=== PATIENT | female | born 1940 | race Caucasian/White ===

== ENCOUNTER 2019-01-10 07:38 | Inpatient (IN) | payer MEDICARE, OTHER ==
[2019-01-10] MEDS ORDERED: ASPIRIN 81 MG TABLET, CHEWABLE PO ONE (08:07)
[2019-01-10] MEDS ORDERED: IPRATROPIUM/ALBUTEROL 0.5-2.5 MG/3 ML AMPUL NEB ONE (08:07)
[2019-01-10 08:41] LABS: VENOUS BLOOD BASE EXCESS -9.8 mmol/L; VENOUS BLOOD HCO3 19.4 mmol/L (20-32); VENOUS BLOOD PCO2 55.3 mmHg (35-63)
[2019-01-10 08:43] LABS: HEMATOCRIT 29.5 % (36.0-47.0); MEAN CORPUSCULAR HEMOGLOBIN 26.8 pg (27.0-33.4); MEAN CORPUSCULAR HGB CONC 30.3 g/dL (32.0-36.0); MEAN CORPUSCULAR VOLUME 88 fl (80-97); PLATELET COUNT 476 10^3/uL (150-450); RED BLOOD COUNT 3.34 10^6/uL (3.72-5.28); RED CELL DISTRIBUTION WIDTH 19.3 % (11.5-14.0); WHITE BLOOD COUNT 20.8 10^3/uL (4.0-10.5)
[2019-01-10 08:44] LABS: VENOUS BLOOD PH 7.16 (7.30-7.42)
--- NOTE | 2019-01-10 08:52 | RADIOLOGY REPORT (SQ) ---
EXAM DESCRIPTION: CHEST SINGLE VIEW COMPLETED DATE/TIME: 01/10/2019 8:38 am REASON FOR STUDY: SOB, COPD, hypoxia COMPARISON: None. EXAM PARAMETERS: NUMBER OF VIEWS: One view. TECHNIQUE: Single frontal radiographic view of the chest acquired. RADIATION DOSE: NA LIMITATIONS: None. FINDINGS: LUNGS AND PLEURA: There is mild, diffuse bilateral interstitial pulmonary opacity. MEDIASTINUM AND HILAR STRUCTURES: No masses. Contour normal. HEART AND VASCULAR STRUCTURES: Cardiomegaly. BONES: No acute findings. HARDWARE: None in the chest. OTHER: No other significant finding. IMPRESSION: Mild, diffuse bilateral interstitial pulmonary opacity, likely edema in the setting of c ardiomegaly. No focal airspace opacity. TECHNICAL DOCUMENTATION: JOB ID: [id number] [employer]- All Rights Reserved Reading location - IP/workstation name: [email or web address]
[2019-01-10 08:53] LABS: ALANINE AMINOTRANSFERASE 25 U/L (9-52); ALBUMIN 3.5 g/dL (3.5-5.0); ALKALINE PHOSPHATASE 89 U/L (38-126); ANION GAP 17 (5-19); ASPARTATE AMINO TRANSFERASE 36 U/L (14-36); BILIRUBIN,DIRECT 0.3 mg/dL (0.0-0.4); BILIRUBIN,TOTAL 0.5 mg/dL (0.2-1.3); BLOOD UREA NITROGEN 13 mg/dL (7-20); CALCIUM 8.6 mg/dL (8.4-10.2); CARBON DIOXIDE 18 mmol/L (22-30); CHLORIDE 108 mmol/L (98-107); CREATINE KINASE 55 U/L (30-135); POTASSIUM 4.6 mmol/L (3.6-5.0); SODIUM 142.7 mmol/L (137-145); TOTAL PROTEIN 6.1 g/dL (6.3-8.2)
[2019-01-10 09:05] LABS: CREATINE KINASE MB 0.77 ng/mL (<4.55); GLUCOSE 434 mg/dL (75-110); TROPONIN I 0.019 ng/mL
[2019-01-10 09:25] LABS: ABSOLUTE LYMPHOCYTES# (MANUAL) 1.7 10^3/uL (0.5-4.7); BASOPHILS % (MANUAL) 0 % (0-2); EOSINOPHILS % (MANUAL) 1 % (0-6); LYMPHOCYTES % (MANUAL) 8 % (13-45); METAMYELOCYTES % (MANUAL) 3 % (0); MONOCYTES % (MANUAL) 0 % (3-13); MYELOCYTES % (MANUAL) 1 % (0); SEGMENTED NEUTROPHILS % (MAN) 87 % (42-78); TOTAL CELLS COUNTED 100
[2019-01-10 09:27] LABS: ANISOCYTOSIS 2+; OVALOCYTES SLIGHT; PLATELET COMMENT INCREASED; POIKILOCYTOSIS SLIGHT; POLYCHROMASIA 1+
--- NOTE | 2019-01-10 09:29 | EKG REPORT ---
SEVERITY:- ABNORMAL ECG - SINUS TACHYCARDIA MINIMAL ST DEPRESSION, ANTEROLATERAL LEADS PROLONGED QT INTERVAL : Confirmed by: Liliam Machado 10-Jan-2019 09:29:16
[2019-01-10] MEDS ORDERED: FUROSEMIDE INJ/PF 40 MG/4 ML SDV IV ONE (12:36)
[2019-01-10] MEDS ORDERED: CLOPIDOGREL BISULFATE 75 MG TABLET PO ONE (12:36)
--- NOTE | 2019-01-10 15:15 | ER Document Report ---
Entered by MO WHEELER SCRIBE 01/10/19 0801 Acting as scribe for:MICHAEL CARRASCO DO ED Respiratory Problem - General Stated Complaint: DIFFICULTY BREATHING Time Seen by Provider: 01/10/19 08:00 Primary Care Provider: JANINA ASHBY MD [Primary Care Provider] - Follow up as needed Information source: Emergency Med Personnel, [facility] Records Notes: 78 year old female that presents to the emergency department today with complaints of shortness of breath. When EMS arrived at the patient's residence, her oxygen saturation was 73% on room air. Patient was placed on c-pap in route here. Patient requested that EMS take her to [facility] but due to the patient being unstable, they rerouted her here. EMS reports that the patient was started on a z-gladys yesterday. Patient reports a dry cough but denies any fevers or chest pain. - Related Data Allergies/Adverse Reactions: latex Allergy (Verified 01/10/19 12:37) Past Medical History - General Information source: Patient, Emergency Med Personnel - Social History Smoking Status: Former Smoker Cigarette use (# per day): No Frequency of alcohol use: None Drug Abuse: None Lives with: Family Family History: Reviewed & Not Pertinent - Past Medical History Cardiac Medical History: Reports: Hx Congestive Heart Failure, Hx Heart Attack, Other - AAA Surgical Hx: Negative Review of Systems - Review of Systems Constitutional: No symptoms reported EENT: No symptoms reported Cardiovascular: No symptoms reported Respiratory: See HPI, Cough, Short of breath Gastrointestinal: No symptoms reported Genitourinary: No symptoms reported Female Genitourinary: No symptoms reported Musculoskeletal: No symptoms reported Skin: No symptoms reported Hematologic/Lymphatic: No symptoms reported Neurological/Psychological: No symptoms reported -: Yes All other systems reviewed and negative Physical Exam - Vital signs Vitals: Resp Pulse Ox 26 H 94 01/10/19 07:45 01/10/19 07:45 - Notes Notes: PHYSICAL EXAM GENERAL: Alert, interacts well. No acute distress. Pulse oximeter at bedside shows saturation of 91% with good waveform on bipap, borderline hypoxia per my interpretation. HEAD: Normocephalic, atraumatic. EYES: Pupils equal, round, and reactive to light. Extraocular movements intact. ENT: Oral mucosa moist, tongue midline. NECK: Full range of motion. Supple. Trachea midline. LUNGS: Diffuse expiratory wheezing bilaterally despite being on bipap. Clear to auscultation bilaterally, no wheezes, rales, or rhonchi. No respiratory distre ss. HEART: Sinus tachycardia. No murmurs, gallops, or rubs. ABDOMEN: Soft, non-tender. Non-distended. Bowel sounds present in all 4 quadrants. No guarding, rigidity, or rebound. EXTREMITIES: Moves all 4 extremities spontaneously. No edema, radial and dorsalis pedis pulses 2/4 bilaterally. No cyanosis. NEUROLOGICAL: Alert and oriented x3. Normal speech. PSYCH: Normal affect, normal mood. SKIN: Warm, dry, normal turgor. No rashes or lesions noted. Course - Re-evaluation Re-evalutation: 01/10/19 09:25 CBC shows leukocytosis at 20.8, hemoglobin is anemic at 9.0, platelets elevated 476, venous blood gas shows respiratory acidosis with a pH of 7.16, PCO2 of 53.5, CMP shows hyperglycemia with glucose of 434, CO2 is actually somewhat low at 18, troponin negative but detectable at 0.019, elevated proBNP P at 5010, chest x-ray shows pulmonary edema but no evidence of pneumonia. On arrival patient was still having significant difficulty breathing and had diffuse expiratory wheezes, patient was placed on BiPAP and improved si gnificantly, hypoxia was documented by EMS with a pulse ox saturation of 73% at home. Here the patient has not been hypoxic but she has had her respirations assisted the entire time with supplemental oxygen and BiPAP. Patient has been given multiple breathing treatments, steroids by EMS, Lasix her e for the heart failure and remains on BiPAP. Family is requesting transfer to [facility] as that is where her physicians currently live. I will be calling Critical access hospital to arrange transfer. 01/10/19 11:14 Called and spoke with Genevieve Neri on the transfer line at [facility] who states they will add the patient to the wait list and they will call me back when they have a bed. She will discuss the patient with the hospitalist in advance but I should not expect a phone call back from the hospitalist until I have a bed available. Patient remains in transfer pending status. 01/10/19 15:12 There are still no beds available for this patient at [facility]. She has improved significantly, but still requires BiPAP. Patient and family are agreeable to being admitted to [facility] while awaiting a bed at [facility]. [facility] transfer line is aware the patient is being admitted, but is still on their wait list for patient requested transfer as well. - Vital Signs Vital signs: Temp Pulse Resp BP Pulse Ox 18 134/80 H 96 01/10/19 11:01 01/10/19 11:01 01/10/19 11:01 - Laboratory Result Diagrams: 01/10/19 07:48 01/10/19 07:48 Laboratory results interpreted by me: 01/10/19 01/10/19 01/10/19 07:48 07:48 07:48 WBC 20.8 H RBC 3.34 L Hgb 9.0 L Hct 29.5 L MCH 26.8 L MCHC 30.3 L RDW 19.3 H Plt Count 476 H Seg Neuts % (Manual) 87 H Lymphocytes % (Manual) 8 L Monocytes % (Manual) 0 L Metamyelocytes % 3 H Myelocytes % 1 H Abs Neuts (Manual) 18.9 H Abs Monocytes (Manual) 0.0 L VBG pH VBG HCO3 Chloride 108 H Carbon Dioxide 18 L Est GFR ( Amer) 52 L Est GFR (Non-Af Amer) 43 L Glucose 434 H* POC Glucose NT-Pro-B Natriuret Pep 5010 H Total Protein 6.1 L 01/10/19 01/10/19 07:48 13:27 WBC RBC Hgb Hct MCH MCHC RDW Plt Count Seg Neuts % (Manual) Lymphocytes % (Manual) Monocytes % (Manual) Metamyelocytes % Myelocytes % Abs Neuts (Manual) Abs Monocytes (Manual) VBG pH 7.16 L* VBG HCO3 19.4 L Chloride Carbon Dioxide Est GFR ( Amer) Est GFR (Non-Af Amer) Glucose POC Glucose 257 H NT-Pro-B Natriuret Pep Total Protein Critical Care Note - Critical Care Note Total time excluding time spent on procedures (mins): 55 Discharge - Discharge Clinical Impression: Acute and chronic respiratory failure with hypoxia, COPD exacerbation, Acute decompensated heart failure Condition: Fair Disposition: ADMITTED INPATIENT Admitting Provider: Conor (Hospitalist) Unit Admitted: IMCU Referrals: JANINA ASHBY MD [Primary Care Provider] - Follow up as needed I personally performed the services described in the documentation, reviewed and edited the documentation which was dictated to the scribe in my presence, and it accurately records my words and actions.
[2019-01-10] MEDS ORDERED: ALBUTEROL SULFATE 0.083% NEB 2.5 MG/3 ML AMPUL NEB PRN (17:23)
[2019-01-10] MEDS ORDERED: ACETAMINOPHEN 325 MG TABLET PO PRN (17:23)
[2019-01-10] MEDS: METOCLOPRAMIDE HCL 10 MG TABLET PO SCH (18:36)
[2019-01-10] MEDS: ENOXAPARIN SODIUM INJ 40 MG/0.4 ML DISP.SYRIN SUBCUT SCH (18:36)
[2019-01-10] MEDS: MAGNESIUM OXIDE 400 MG TABLET PO SCH (18:36)
[2019-01-10] MEDS: GLIPIZIDE XL 5 MG TAB.ER.24 PO SCH (18:36)
[2019-01-10] MEDS: FERROUS SULFATE 325 MG TABLET PO SCH (18:36)
[2019-01-10] MEDS ORDERED: GLUCAGON,HUMAN RECOMB 1 MG INJ IM PRN (20:00)
[2019-01-10] MEDS ORDERED: DEXTROSE 40% GEL 15 GM TUBE PO PRN (20:00)
[2019-01-10] MEDS ORDERED: DEXTROSE 40% GEL 15 GM TUBE X 2 PO PRN (20:00)
[2019-01-10] MEDS ORDERED: DEXTROSE 50%-WATER SYRINGE 12.5 GM/25 ML DOSE IV PRN (20:00)
[2019-01-10] MEDS ORDERED: DEXTROSE 50%-WATER SYRINGE 25 GM/50 ML DOSE IV PRN (20:00)
[2019-01-10] MEDS: IPRATROPIUM/ALBUTEROL 0.5-2.5 MG/3 ML AMPUL NEB SCH (20:09)
[2019-01-10] MEDS: BUDESONIDE NEB 0.5 MG/2 ML AMPUL NEB SCH (20:09)
[2019-01-10] MEDS: MONTELUKAST SODIUM 10 MG TABLET PO SCH (21:21)
[2019-01-10] MEDS: ATORVASTATIN CALCIUM 40 MG TABLET PO SCH (21:22)
[2019-01-10] MEDS: INSULIN LISPRO 100 UNIT/ML 3 ML VIAL SUBCUT SCH (21:26)
[2019-01-10] MEDS: ATENOLOL 50 MG TABLET PO SCH (21:32)
[2019-01-10] MEDS ORDERED: (PENDING PHARMACY ID) (Atenolol [Tenormin] 25 MG) PO SCH (22:00)
[2019-01-10 22:49] LABS: CREATINE KINASE MB 2.28 ng/mL (<4.55); TROPONIN I 0.147 ng/mL
[2019-01-11] MEDS: IPRATROPIUM/ALBUTEROL 0.5-2.5 MG/3 ML AMPUL NEB SCH ×4 (02:30→20:08)
[2019-01-11 04:53] LABS: ABSOLUTE BASOPHILS # (AUTO) 0.1 10^3/uL (0.0-0.2); ABSOLUTE EOSINOPHILS # (AUTO) 0.1 10^3/uL (0.0-0.6); ABSOLUTE LYMPHOCYTES (AUTO) 1.4 10^3/uL (0.5-4.7); ABSOLUTE MONOCYTES (AUTO) 1.1 10^3/uL (0.1-1.4); ABSOLUTE NEUT (AUTO) 9.3 10^3/uL (1.7-8.2); BASOPHILS % (AUTO) 0.7 % (0-2); EOSINOPHILS % (AUTO) 0.7 % (0-6); HEMATOCRIT 24.1 % (36.0-47.0); LYMPHOCYTES % (AUTO) 11.4 % (13-45); MEAN CORPUSCULAR HEMOGLOBIN 26.6 pg (27.0-33.4); MEAN CORPUSCULAR HGB CONC 31.4 g/dL (32.0-36.0); MEAN CORPUSCULAR VOLUME 85 fl (80-97); MONOCYTES % (AUTO) 9.2 % (3-13); PLATELET COUNT 277 10^3/uL (150-450); RED BLOOD COUNT 2.85 10^6/uL (3.72-5.28); RED CELL DISTRIBUTION WIDTH 18.6 % (11.5-14.0); TOTAL CELLS COUNTED % (AUTO) 100 %; WHITE BLOOD COUNT 11.9 10^3/uL (4.0-10.5)
[2019-01-11 04:57] LABS: HEMOGLOBIN 7.6 g/dL (12.0-15.5)
[2019-01-11 05:06] LABS: ANION GAP 10 (5-19); BLOOD UREA NITROGEN 23 mg/dL (7-20); CALCIUM 8.7 mg/dL (8.4-10.2); CARBON DIOXIDE 24 mmol/L (22-30); CHLORIDE 109 mmol/L (98-107); GLUCOSE 105 mg/dL (75-110); POTASSIUM 3.7 mmol/L (3.6-5.0); SODIUM 142.5 mmol/L (137-145)
[2019-01-11] MEDS: PANTOPRAZOLE SODIUM 40 MG TABLET.DR PO SCH (06:19)
[2019-01-11 07:16] LABS: ARTERIAL BLOOD BASE EXCESS -0.4 mmol/L; ARTERIAL BLOOD H2CO3 0.99 mmol/L (1.05-1.35); ARTERIAL BLOOD PCO2 32.8 mmHg (35-45); ARTERIAL BLOOD PH 7.46 (7.35-7.45); ARTERIAL BLOOD PO2 75.7 mmHg (80-100)
[2019-01-11 07:19] LABS: ARTERIAL BLOOD FIO2 36%
[2019-01-11] MEDS: BUDESONIDE NEB 0.5 MG/2 ML AMPUL NEB SCH ×2 (08:18→20:08)
--- NOTE | 2019-01-11 08:18 | PDOC H&P ---
History of Present Illness Admission Date/PCP: 01/10/19 15:33 JANINA ASHBY MD Patient complains of: Increasing shortness of breath History of Present Illness: KEN JEFFERSON is a 78 year old female Past Medical History Cardiac Medical History: Reports: Congestive Heart Failure, Myocardial Infarction, Hyperlipidema, Hypertension, Other - AAA Pulmonary Medical History: Reports: Chronic Obstructive Pulmonary Disease (COPD) Endocrine Medical History: Reports: Diabetes Mellitus Type 2 GI Medical History: Reports: Gastroesophageal Reflux Disease, Other - "Spastic colon", possible diabetic gastroparesis. Hematology: Reports: Anemia Past Surgical History Past Surgical History: Reports: Cardiac Catheterization - With stent, Cholecystectomy, Hysterectomy Social History Information Source: Patient Lives with: Family Smoking Status: Former Smoker Frequency of Alcohol Use: None Hx Recreational Drug Use: No Hx Prescription Drug Abuse: No - Advance Directive Resuscitation Status: Do Not Resuscitate Surrogate healthcare decision maker:: No formal documentation in place. Her son would be the designated decision maker. Family History Family History: DM, Malignancy Parental Family History Reviewed: Yes Children Family History Reviewed: Yes Sibling(s) Family History Reviewed.: Yes Medication/Allergy Home Medications: Aclidinium [place] [Tudorza Pressair] 1 puff IH Q12 01/10/19 Aspirin [Ecotrin 81 mg EC Tablet] 81 mg PO DAILY 01/10/19 Atenolol [Tenormin] 25 mg PO Q12 01/10/19 Cetirizine HCl [Zyrtec 10 mg Tablet] 10 mg PO DAILY 01/10/19 Clopidogrel Bisulfate [Plavix 75 mg Tablet] 75 mg PO DAILY 01/10/19 Ferrous Sulfate [Feosol 325 mg Tablet] 325 mg PO BID 01/10/19 Fluticasone/Salmeterol [Advair 500-50 Diskus 14 Dose/Diskus] 1 inh IH Q12 01/10/19 Furosemide [Lasix 40 mg Tablet] 40 mg PO QPM 01/10/19 Glipizide [Glucotrol Xl] 10 mg PO BID 01/10/19 Lisinopril [Prinivil 5 mg Tablet] 5 mg PO DAILY 01/10/19 Magnesium Oxide [Mag-Ox 400 mg Tablet] 400 mg PO BID 01/10/19 Metformin HCl [Glucophage 500 mg Tablet] 500 mg PO BIDACBS 01/10/19 Metoclopramide HCl [Reglan 10 mg Tablet] 10 mg PO BID 01/10/19 Montelukast Sodium [Singulair 10 mg Tablet] 10 mg PO QHS 01/10/19 Multivit-Min/Iron/Folic/Lutein [Centrum Silver Women Tablet] 1 each PO DAILY 01/10/19 Nitroglycerin [Nitrostat 0.4 mg (1/150 Gr) Tabs 25/Bottle] 1 tab SL Q5MP PRN 01/10/19 Omeprazole 40 mg PO DAILY 01/10/19 Potassium Chloride [Klor-Con 10 Meq Capsule ER] 20 meq PO DAILY 01/10/19 Rosuvastatin Calcium [Crestor 10 mg Tablet] 10 mg PO QHS 01/10/19 Sitagliptin Phosphate [Januvia 50 mg Tablet] 100 mg PO DAILY 01/10/19 Allergies/Adverse Reactions: No Known Allergies Allergy (Unverified 01/10/19 18:45) Review of Systems Constitutional: PRESENT: as per HPI Eyes: ABSENT: visual disturbances Ears: ABSENT: hearing changes Nose, Mouth, and Throat: ABSENT: mouth pain, sore throat Cardiovascular: PRESENT: dyspnea on exertion. ABSENT: chest pain, palpitations Respiratory: PRESENT: cough, dyspnea. ABSENT: hemoptysis, sputum Gastrointestinal: PRESENT: diarrhea - Chronic. ABSENT: abdominal pain, heartburn, hematemesis, hematochezia, nausea, vomiting Genitourinary: ABSENT: dysuria, hematuria Integumentary: ABSENT: lesions, rash Neurological: ABSENT: abnormal gait, abnormal speech, memory loss, syncope, vertigo Psychiatric: ABSENT: anxiety, depression Endocrine: ABSENT: cold intolerance, heat intolerance, polydipsia, polyuria Hematologic/Lymphatic: ABSENT: easy bruising Physical Exam Vital Signs: Temp Pulse Resp BP Pulse Ox 15 101/50 L 92 01/10/19 16:02 01/10/19 16:02 01/10/19 16:00 Intake & Output 01/09/19 01/10/19 01/11/19 06:59 06:59 06:59 Weight 114.8 kg General appearance: PRESENT: cooperative, mild distress - Mild to moderate distress, morbidly obese, well-developed Head exam: PRESENT: atraumatic, normocephalic Eye exam: PRESENT: conjunctiva pink, EOMI, PERRLA, other - Bilateral pterygium Ear exam: PRESENT: normal external ear exam Mouth exam: PRESENT: dry mucosa, neck supple, other - BiPAP mask in place Neck exam: PRESENT: full ROM. ABSENT: carotid bruit, JVD, lymphadenopathy Respiratory exam: PRESENT: rales - Fine rales at bases, tachypnea. ABSENT: accessory muscle use, rhonchi, wheezes Cardiovascular exam: PRESENT: RRR, +S1, +S2 GI/Abdominal exam: PRESENT: normal bowel sounds, soft. ABSENT: distended, tenderness Rectal exam: PRESENT: deferred Gentrourinary exam: ABSENT: indwelling catheter Extremities exam: ABSENT: pedal edema, tenderness Neurological exam: PRESENT: alert, awake, oriented to person, oriented to place, oriented to time, oriented to situation, CN II-XII grossly intact. ABSENT: motor sensory deficit Psychiatric exam: PRESENT: appropriate affect, normal mood. ABSENT: agitated, anxious Focused psych exam: ABSENT: delusional, restlessness Results Laboratory Results: 01/10/19 07:48 01/10/19 07:48 01/10/19 01/10/19 01/10/19 07:48 07:48 07:48 WBC 20.8 H RBC 3.34 L Hgb 9.0 L Hct 29.5 L MCV 88 MCH 26.8 L MCHC 30.3 L RDW 19.3 H Plt Count 476 H Seg Neutrophils % Not Reportable Lymphocytes % Not Reportable Monocytes % Not Reportable Eosinophils % Not Reportable Basophils % Not Reportable Absolute Neutrophils Not Reportable Absolute Lymphocytes Not Reportable Absolute Monocytes Not Reportable Absolute Eosinophils Not Reportable Absolute Basophils Not Reportable VBG pH 7.16 L* VBG pCO2 55.3 VBG HCO3 19.4 L VBG Base Excess -9.8 Sodium 142.7 Potassium 4.6 Chloride 108 H Carbon Dioxide 18 L Anion Gap 17 BUN 13 Creatinine 1.22 Est GFR ( Amer) 52 L Est GFR (Non-Af Amer) 43 L Glucose 434 H* Calcium 8.6 Total Bilirubin 0.5 AST 36 ALT 25 Alkaline Phosphatase 89 Total Protein 6.1 L Albumin 3.5 01/10/19 01/10/19 01/10/19 07:48 07:48 12:28 Creatine Kinase 55 CK-MB (CK-2) 0.77 Troponin I 0.019 0.113 NT-Pro-B Natriuret Pep 5010 H Impressions: Chest X-Ray 01/10/19 08:07 IMPRESSION: Mild, diffuse bilateral interstitial pulmonary opacity, likely edema in the setting of cardiomegaly. No focal airspace opacity. Assessment and Plan - Diagnosis (1) Acute and chronic respiratory failure with hypoxia Is this a current diagnosis for this admission?: Yes Plan: Likely combination of her chronic obstructive pulmonary disease and heart failur e. Currently on BiPAP. Her FiO2 is 21%. We will try and wean from BiPAP as tolerated. She does not wear oxygen at home. (2) COPD exacerbation Is this a current diagnosis for this admission?: Yes Plan: We will switch to nebulizer treatments. Did suggest to her son that she keep her Advair Diskus on hand. The goal will be to return to her home regimen. I also suggested that she keep the Tudorza for use in the hospital as well. (3) Acute decompensated heart failure Is this a current diagnosis for this admission?: Yes Plan: We will use IV Lasix instead of oral for the time being. Switch back to oral furosemide when appropriate. (4) Diabetes mellitus type 2 in obese Is this a current diagnosis for this admission?: Yes Plan: Continue current regimen. Cardiac diabetic diet. Fingersticks with sliding scale coverage. (5) Coronary artery disease Qualifiers: Coronary Disease-Associated Artery/Lesion type: [place] artery [place] vs. transplanted heart: [place] heart Associated angina: without angina Qualified Code(s): I25.10 - Atherosclerotic heart disease of [place] coronary artery without angina pectoris Is this a current diagnosis for this admission?: Yes Plan: The patient denies any angina. With her hypoxia and history of coronary disease we will monitor on telemetry. We will continue her current medication regimen. (6) Hypercholesterolemia Is this a current diagnosis for this admission?: Yes Plan: Continue statin therapy. Cardiac diabetic diet. (7) Obesity (BMI 30-39.9) Is this a current diagnosis for this admission?: Yes Plan: Certainly risk factor with her underlying comorbidities. Cardiac diabetic diet as above. Encourage exercise program. Participation would like to be limited due to cardiopulmonary status. - Time Time Spent with patient: 70 minutes Time Spent with patient: 35 or more minutes Medications reviewed and adjusted accordingly: Yes Anticipated discharge: [facility] - The patient has all of her physicians at [facility]. She has been accepted for transfer and we are awaiting bed availability. - Inpatient Certification Based on my medical assessment, after consideration of the patient's comorbidities, presenting symptoms, or acuity I expect that the services needed warrant INPATIENT care.: Yes I certify that my determination is in accordance with my understanding of Medicare's requirements for reasonable and necessary INPATIENT services [42 CFR 412.3e].: Yes Medical Necessity: Failure to Improve With Outpatient Therapy, Significant Comorbidiites Make Outpatient Treatment Too Risky, Need For Continuous Telemetry Monitoring, Need for Nebulizer Therapy and Monitoring of Response
[2019-01-11] MEDS ORDERED: (PENDING PHARMACY ID) (Aclidinium Bromide [Tudorza Pressair] 1 PUFF) IH SCH (10:00)
[2019-01-11] MEDS: INSULIN LISPRO 100 UNIT/ML 3 ML VIAL SUBCUT SCH ×4 (11:14→22:35)
[2019-01-11] MEDS: SITAGLIPTIN PHOSPHATE 50 MG TABLET PO SCH (11:43)
[2019-01-11] MEDS: ASPIRIN 81 MG TABLET, ENT COATED PO SCH (11:43)
[2019-01-11] MEDS: METFORMIN HCL 500 MG TABLET PO SCH ×2 (11:43→18:46)
[2019-01-11] MEDS: POTASSIUM CHLORIDE 10 MEQ CAPSULE.ER PO SCH (11:43)
[2019-01-11] MEDS: CLOPIDOGREL BISULFATE 75 MG TABLET PO SCH (11:43)
[2019-01-11] MEDS: FERROUS SULFATE 325 MG TABLET PO SCH ×2 (11:43→18:48)
[2019-01-11] MEDS: MAGNESIUM OXIDE 400 MG TABLET PO SCH ×2 (11:44→18:47)
[2019-01-11] MEDS: FUROSEMIDE INJ/PF 40 MG/4 ML SDV IV SCH (11:44)
[2019-01-11] MEDS: CETIRIZINE 10 MG TABLET PO SCH (11:44)
[2019-01-11] MEDS: METOCLOPRAMIDE HCL 10 MG TABLET PO SCH ×2 (11:44→18:47)
[2019-01-11] MEDS: GLIPIZIDE XL 5 MG TAB.ER.24 PO SCH ×2 (11:44→18:47)
[2019-01-11] MEDS: LISINOPRIL 5 MG TABLET PO SCH (11:44)
[2019-01-11] MEDS: ENOXAPARIN SODIUM INJ 40 MG/0.4 ML DISP.SYRIN SUBCUT SCH (11:45)
[2019-01-11] MEDS: ATENOLOL 50 MG TABLET PO SCH ×2 (11:47→22:37)
[2019-01-11 13:26] LABS: PATH REVIEW PATHOLOGIST REVIEWED
--- NOTE | 2019-01-11 15:53 | PDOC PROGRESS REPORT ---
Subjective Progress Note for:: 01/11/19 Subjective:: No adverse events overnight. No new complaints. She is still getting shortness of breath whenever she gets up to walk. She is very talkative while she is at rest, however. Good urine output. She was actually complaining about how much the Lasix is making her urinate. Reason For Visit: COPD,CHF, DIABETES MELLITUS Physical Exam Vital Signs: Temp Pulse Resp BP Pulse Ox 98.0 F 82 16 128/51 H 96 01/11/19 11:17 01/11/19 13:15 01/11/19 13:15 01/11/19 11:17 01/11/19 13:15 Intake & Output 01/10/19 01/11/19 01/12/19 06:59 06:59 06:59 Weight 110 kg General appearance: PRESENT: no acute distress, cooperative, disheveled, morbidly obese Respiratory exam: PRESENT: crackles, symmetrical, unlabored. ABSENT: accessory muscle use, prolonged expiratory phas, rhonchi, tachypnea, wheezes Cardiovascular exam: PRESENT: RRR, +S1, +S2 Pulses: PRESENT: normal carotid pulses Vascular exam: PRESENT: normal capillary refill GI/Abdominal exam: PRESENT: normal bowel sounds, soft. ABSENT: distended, guarding, rebound, tenderness Extremities exam: PRESENT: pedal edema, +1 edema. ABSENT: clubbing Musculoskeletal exam: PRESENT: normal inspection. ABSENT: deformity Neurological exam: PRESENT: alert, awake, oriented to person, oriented to place, oriented to time, oriented to situation Psychiatric exam: PRESENT: appropriate affect, normal mood Skin exam: PRESENT: dry, warm Results Laboratory Results: 01/11/19 04:00 01/11/19 04:00 01/11/19 01/11/19 01/11/19 04:00 04:00 06:34 WBC 11.9 H RBC 2.85 L Hgb 7.6 L Hct 24.1 L MCV 85 MCH 26.6 L MCHC 31.4 L RDW 18.6 H Plt Count 277 Seg Neutrophils % 78.0 Lymphocytes % 11.4 L Monocytes % 9.2 Eosinophils % 0.7 Basophils % 0.7 Absolute Neutrophils 9.3 H Absolute Lymphocytes 1.4 Absolute Monocytes 1.1 Absolute Eosinophils 0.1 Absolute Basophils 0.1 Carbonic Acid 0.99 L HCO3/H2CO3 Ratio 23:1 ABG pH 7.46 H ABG pCO2 32.8 L ABG pO2 75.7 L ABG HCO3 23.0 ABG O2 Saturation 96.0 ABG Base Excess -0.4 FiO2 36% Sodium 142.5 Potassium 3.7 Chloride 109 H Carbon Dioxide 24 Anion Gap 10 BUN 23 H Creatinine 1.35 H Est GFR ( Amer) 46 L Est GFR (Non-Af Amer) 38 L Glucose 105 Calcium 8.7 Magnesium 2.2 Blood Type Antibody Screen 01/11/19 07:25 WBC RBC Hgb Hct MCV MCH MCHC RDW Plt Count Seg Neutrophils % Lymphocytes % Monocytes % Eosinophils % Basophils % Absolute Neutrophils Absolute Lymphocytes Absolute Monocytes Absolute Eosinophils Absolute Basophils Carbonic Acid HCO3/H2CO3 Ratio ABG pH ABG pCO2 ABG pO2 ABG HCO3 ABG O2 Saturation ABG Base Excess FiO2 Sodium Potassium Chloride Carbon Dioxide Anion Gap BUN Creatinine Est GFR ( Amer) Est GFR (Non-Af Amer) Glucose Calcium Magnesium Blood Type O POSITIVE Antibody Screen NEGATIVE 01/10/19 01/10/19 01/10/19 07:48 07:48 12:28 Creatine Kinase 55 CK-MB (CK-2) 0.77 Troponin I 0.019 0.113 NT-Pro-B Natriuret Pep 5010 H 01/10/19 01/10/19 01/10/19 19:45 22:05 22:05 Creatine Kinase 90 CK-MB (CK-2) 2.28 Troponin I 0.194 0.147 NT-Pro-B Natriuret Pep 01/11/19 01/11/19 04:00 10:06 Creatine Kinase CK-MB (CK-2) Troponin I 0.179 0.160 NT-Pro-B Natriuret Pep Impressions: Chest X-Ray 01/10/19 08:07 IMPRESSION: Mild, diffuse bilateral interstitial pulmonary opacity, likely edema in the setting of cardiomegaly. No focal airspace opacity. Assessment and Plan - Diagnosis (1) Acute and chronic respiratory failure with hypoxia Is this a current diagnosis for this admission?: Yes Plan: Due to heart failure. Continue supplemental O2 to maintain SPO2 greater than 90%. (2) Acute decompensated heart failure Is this a current diagnosis for this admission?: Yes Plan: Continue with IV Lasix for now. Patient has had improvement in her respiratory status. (3) Diabetes mellitus type 2 in obese Is this a current diagnosis for this admission?: Yes Plan: Continue current regimen. Cardiac diabetic diet. Fingersticks with sliding scale coverage. (4) Obesity (BMI 30-39.9) Is this a current diagnosis for this admission?: Yes Plan: Certainly risk factor with her underlying comorbidities. Cardiac diabetic diet as above. Encourage exercise program. Participation would like to be limited due to cardiopulmonary status. - Time Time Spent with patient: 15-24 minutes
[2019-01-11] MEDS ORDERED: DIPHENHYDRAMINE HCL 50 MG/ML VIAL ONE (17:57)
[2019-01-11 21:45] LABS: HEMATOCRIT 26.7 % (36.0-47.0); HEMOGLOBIN 8.6 g/dL (12.0-15.5); MEAN CORPUSCULAR HEMOGLOBIN 27.5 pg (27.0-33.4); MEAN CORPUSCULAR HGB CONC 32.4 g/dL (32.0-36.0); MEAN CORPUSCULAR VOLUME 85 fl (80-97); PLATELET COUNT 283 10^3/uL (150-450); RED BLOOD COUNT 3.14 10^6/uL (3.72-5.28); RED CELL DISTRIBUTION WIDTH 17.5 % (11.5-14.0); WHITE BLOOD COUNT 10.4 10^3/uL (4.0-10.5)
[2019-01-11] MEDS: ATORVASTATIN CALCIUM 40 MG TABLET PO SCH (22:33)
[2019-01-11] MEDS: MONTELUKAST SODIUM 10 MG TABLET PO SCH (22:34)
[2019-01-12] MEDS: IPRATROPIUM/ALBUTEROL 0.5-2.5 MG/3 ML AMPUL NEB SCH ×4 (02:22→19:53)
[2019-01-12] MEDS: PANTOPRAZOLE SODIUM 40 MG TABLET.DR PO SCH (06:13)
[2019-01-12] MEDS: BUDESONIDE NEB 0.5 MG/2 ML AMPUL NEB SCH ×2 (07:38→19:53)
[2019-01-12] MEDS: INSULIN LISPRO 100 UNIT/ML 3 ML VIAL SUBCUT SCH ×4 (10:51→21:33)
[2019-01-12] MEDS: POTASSIUM CHLORIDE 10 MEQ CAPSULE.ER PO SCH (10:54)
[2019-01-12] MEDS: ASPIRIN 81 MG TABLET, ENT COATED PO SCH (10:55)
[2019-01-12] MEDS: SITAGLIPTIN PHOSPHATE 50 MG TABLET PO SCH (10:55)
[2019-01-12] MEDS: MAGNESIUM OXIDE 400 MG TABLET PO SCH ×2 (10:55→17:09)
[2019-01-12] MEDS: CLOPIDOGREL BISULFATE 75 MG TABLET PO SCH (10:55)
[2019-01-12] MEDS: ATENOLOL 50 MG TABLET PO SCH ×2 (10:55→21:35)
[2019-01-12] MEDS: GLIPIZIDE XL 5 MG TAB.ER.24 PO SCH ×2 (10:55→17:09)
[2019-01-12] MEDS: FERROUS SULFATE 325 MG TABLET PO SCH ×2 (10:55→17:08)
[2019-01-12] MEDS: CETIRIZINE 10 MG TABLET PO SCH (10:55)
[2019-01-12] MEDS: METFORMIN HCL 500 MG TABLET PO SCH ×2 (10:55→17:09)
[2019-01-12] MEDS: LISINOPRIL 5 MG TABLET PO SCH (10:55)
[2019-01-12] MEDS: METOCLOPRAMIDE HCL 10 MG TABLET PO SCH ×2 (10:55→17:09)
[2019-01-12] MEDS: ENOXAPARIN SODIUM INJ 40 MG/0.4 ML DISP.SYRIN SUBCUT SCH (10:56)
[2019-01-12] MEDS: FUROSEMIDE INJ/PF 40 MG/4 ML SDV IV SCH (10:57)
--- NOTE | 2019-01-12 16:57 | PDOC PROGRESS REPORT ---
Subjective Progress Note for:: 01/12/19 Subjective:: No adverse events overnight. No new complaints. Vital signs been stable. She had a 2 L per nasal cannula. She is very talkative at rest. She states she is been able to get up and ambulate in the room. I told her I would like for her to ambulate in the hallway today, possibly off oxygen. Reason For Visit: COPD,CHF, DIABETES MELLITUS Physical Exam Vital Signs: Temp Pulse Resp BP Pulse Ox 98.1 F 71 18 130/72 H 94 01/12/19 11:26 01/12/19 13:39 01/12/19 13:39 01/12/19 11:26 01/12/19 13:39 Intake & Output 01/11/19 01/12/19 01/13/19 06:59 06:59 06:59 Intake Total 1993 Output Total 0 Balance 1993 Weight 110 kg 109.5 kg General appearance: PRESENT: no acute distress, cooperative, disheveled, mo rbidly obese Respiratory exam: PRESENT: crackles, symmetrical, unlabored. ABSENT: accessory muscle use, prolonged expiratory phas, rhonchi, tachypnea, wheezes Cardiovascular exam: PRESENT: RRR, +S1, +S2 Pulses: PRESENT: normal carotid pulses Vascular exam: PRESENT: normal capillary refill GI/Abdominal exam: PRESENT: normal bowel sounds, soft. ABSENT: distended, guarding, rebound, tenderness Extremities exam: PRESENT: pedal edema, +1 edema. ABSENT: clubbing Musculoskeletal exam: PRESENT: normal inspection. ABSENT: deformity Neurological exam: PRESENT: alert, awake, oriented to person, oriented to place, oriented to time, oriented to situation Psychiatric exam: PRESENT: appropriate affect, normal mood Skin exam: PRESENT: dry, warm Results Laboratory Results: 01/11/19 21:35 01/11/19 04:00 01/11/19 01/11/19 07:25 21:35 WBC 10.4 RBC 3.14 L Hgb 8.6 L Hct 26.7 L MCV 85 MCH 27.5 MCHC 32.4 RDW 17.5 H Plt Count 283 Blood Type O POSITIVE Antibody Screen NEGATIVE 01/10/19 01/10/19 01/10/19 07:48 07:48 12:28 Creatine Kinase 55 CK-MB (CK-2) 0.77 Troponin I 0.019 0.113 NT-Pro-B Natriuret Pep 5010 H 01/10/19 01/10/19 01/10/19 19:45 22:05 22:05 Creatine Kinase 90 CK-MB (CK-2) 2.28 Troponin I 0.194 0.147 NT-Pro-B Natriuret Pep 01/11/19 01/11/19 04:00 10:06 Creatine Kinase CK-MB (CK-2) Troponin I 0.179 0.160 NT-Pro-B Natriuret Pep Impressions: Chest X-Ray 01/10/19 08:07 IMPRESSION: Mild, diffuse bilateral interstitial pulmonary opacity, likely edema in the setting of cardiomegaly. No focal airspace opacity. Assessment and Plan - Diagnosis (1) Acute and chronic respiratory failure with hypoxia Is this a current diagnosis for this admission?: Yes Plan: Due to heart failure. Continue supplemental O2 to maintain SPO2 greater than 90%. (2) Acute decompensated heart failure Is this a current diagnosis for this admission?: Yes Plan: Improving with diuresis. Anticipate she should be ready to go home by tomorrow. (3) Diabetes mellitus type 2 in obese Is this a current diagnosis for this admission?: Yes Plan: Continue current regimen. Cardiac diabetic diet. Fingersticks with sliding scale coverage. (4) Obesity (BMI 30-39.9) Is this a current diagnosis for this admission?: Yes Plan: Certainly risk factor with her underlying comorbidities. Cardiac diabetic diet as above. Encourage exercise program. Participation would like to be limited due to cardiopulmonary status. - Time Time Spent with patient: 15-24 minutes
[2019-01-12] MEDS: ATORVASTATIN CALCIUM 40 MG TABLET PO SCH (21:35)
[2019-01-12] MEDS: MONTELUKAST SODIUM 10 MG TABLET PO SCH (21:35)
[2019-01-13] MEDS: IPRATROPIUM/ALBUTEROL 0.5-2.5 MG/3 ML AMPUL NEB SCH ×2 (02:05→08:26)
[2019-01-13] MEDS: PANTOPRAZOLE SODIUM 40 MG TABLET.DR PO SCH (05:54)
[2019-01-13] MEDS: BUDESONIDE NEB 0.5 MG/2 ML AMPUL NEB SCH (08:26)
[2019-01-13] MEDS: INSULIN LISPRO 100 UNIT/ML 3 ML VIAL SUBCUT SCH (08:58)
[2019-01-13] MEDS: GLIPIZIDE XL 5 MG TAB.ER.24 PO SCH (09:04)
[2019-01-13] MEDS: METFORMIN HCL 500 MG TABLET PO SCH (09:04)
[2019-01-13] MEDS: CETIRIZINE 10 MG TABLET PO SCH (09:04)
[2019-01-13] MEDS: METOCLOPRAMIDE HCL 10 MG TABLET PO SCH (09:04)
[2019-01-13] MEDS: SITAGLIPTIN PHOSPHATE 50 MG TABLET PO SCH (09:04)
[2019-01-13] MEDS: ATENOLOL 50 MG TABLET PO SCH (09:05)
[2019-01-13] MEDS: CLOPIDOGREL BISULFATE 75 MG TABLET PO SCH (09:05)
[2019-01-13] MEDS: ASPIRIN 81 MG TABLET, ENT COATED PO SCH (09:05)
[2019-01-13] MEDS: FERROUS SULFATE 325 MG TABLET PO SCH (09:05)
[2019-01-13] MEDS: MAGNESIUM OXIDE 400 MG TABLET PO SCH (09:05)
[2019-01-13] MEDS: POTASSIUM CHLORIDE 10 MEQ CAPSULE.ER PO SCH (09:05)
[2019-01-13] MEDS: ENOXAPARIN SODIUM INJ 40 MG/0.4 ML DISP.SYRIN SUBCUT SCH (09:05)
[2019-01-13] MEDS: FUROSEMIDE INJ/PF 40 MG/4 ML SDV IV SCH (09:05)
[2019-01-13] MEDS: LISINOPRIL 5 MG TABLET PO SCH (09:05)
[2019-01-13 11:33] VITALS: BP 119/56
--- NOTE | 2019-01-13 15:27 | PDOC DISCHARGE SUMMARY ---
General - Admit/Disc Date/PCP Admission Date/Primary Care Provider: 01/10/19 15:33 JANINA ASHBY MD Discharge Date: 01/13/19 - Discharge Diagnosis (1) Acute and chronic respiratory failure with hypoxia Is this a current diagnosis for this admission?: Yes Summary: Resolved with diuresis. She was ambulating on room air and not getting short of breath at time of discharge. (2) Acute decompensated heart failure Is this a current diagnosis for this admission?: Yes Summary: Improved with IV diuresis (3) Diabetes mellitus type 2 in obese Is this a current diagnosis for this admission?: Yes Summary: Controlled with her home medications along with a as needed sliding scale (4) Obesity (BMI 30-39.9) Is this a current diagnosis for this admission?: Yes Summary: Strongly encouraged lifestyle modification - Additional Information Resuscitation Status: Do Not Resuscitate Discharge Diet: Cardiac, Diabetic Discharge Activity: Activity As Tolerated, Balance Activity w/Rest, Weigh Daily Home Medications: Aclidinium [place] [Tudorza Pressair] 1 puff IH Q12 01/10/19 Aspirin [Ecotrin 81 mg EC Tablet] 81 mg PO DAILY 01/10/19 Atenolol [Tenormin] 25 mg PO Q12 01/10/19 Cetirizine HCl [Zyrtec 10 mg Tablet] 10 mg PO DAILY 01/10/19 Clopidogrel Bisulfate [Plavix 75 mg Tablet] 75 mg PO DAILY 01/10/19 Ferrous Sulfate [Feosol 325 mg Tablet] 325 mg PO BID 01/10/19 Fluticasone/Salmeterol [Advair 500-50 Diskus 14 Dose/Diskus] 1 inh IH Q12 01/10/19 Furosemide [Lasix 40 mg Tablet] 40 mg PO QPM 01/10/19 Glipizide [Glucotrol Xl] 10 mg PO BID 01/10/19 Lisinopril [Prinivil 5 mg Tablet] 5 mg PO DAILY 01/10/19 Magnesium Oxide [Mag-Ox 400 mg Tablet] 400 mg PO BID 01/10/19 Metformin HCl [Glucophage 500 mg Tablet] 500 mg PO BIDACBS 01/10/19 Metoclopramide HCl [Reglan 10 mg Tablet] 10 mg PO BID 01/10/19 Montelukast Sodium [Singulair 10 mg Tablet] 10 mg PO QHS 01/10/19 Multivit-Min/Iron/Folic/Lutein [Centrum Silver Women Tablet] 1 each PO DAILY 01/10/19 Nitroglycerin [Nitrostat 0.4 mg (1/150 Gr) Tabs 25/Bottle] 1 tab SL Q5MP PRN 01/10/19 Omeprazole 40 mg PO DAILY 01/10/19 Potassium Chloride [Klor-Con 10 Meq Capsule ER] 20 meq PO DAILY 01/10/19 Rosuvastatin Calcium [Crestor 10 mg Tablet] 10 mg PO QHS 01/10/19 Sitagliptin Phosphate [Januvia 50 mg Tablet] 100 mg PO DAILY 01/10/19 History of Present Illness History of Present Illness: KEN JEFFERSON is a 78 year old female that presents to the emergency department today with complaints of shortness of breath. When EMS arrived at the patient's residence, her oxygen saturation was 73% on room air. Patient was placed on c- pap in route here. [facility] due to the patient being unstable, they rerouted her here. EMS reports that the patient was started on a z-gladys yesterday. Patient reports a dry cough but denies any fevers or chest pain. Hospital Course Hospital Course: She was placed on oxygen and was given IV diuresis. She had a good response. We were able to gradually wean her down to room air. She is able to ambulate independently off oxygen. She said that her Lasix had recently been decreased in dose. She has a scale at home but has not been checking her weight every day. Rather than adjust her home medications, I told her to keep a journal of her weight every day and if she gains more than 2 pounds in a day or 5 pounds in a week that she needs to call her doctor for recommendations. She verbalized understanding. Her labs and examination were reassuring and she was discharged in good condition. Physical Exam Vital Signs: Temp Pulse Resp BP Pulse Ox 97.5 F 73 18 119/56 L 95 01/13/19 11:32 01/13/19 11:32 01/13/19 11:32 01/13/19 11:32 01/13/19 11:32 Intake & Output 01/12/19 01/13/19 01/14/19 06:59 06:59 06:59 Intake Total 1993 1073 Output Total 0 Balance 1994 1073 Weight 109.5 kg 107.5 kg General appearance: PRESENT: no acute distress, cooperative, disheveled, morbidly obese Respiratory exam: PRESENT: Clear to auscultation bilaterally, symmetrical, unlabored. ABSENT: accessory muscle use, crackles, prolonged expiratory phas, rhonchi, tachypnea, wheezes Cardiovascular exam: PRESENT: RRR, +S1, +S2 Pulses: PRESENT: normal carotid pulses Vascular exam: PRESENT: normal capillary refill GI/Abdominal exam: PRESENT: normal bowel sounds, soft. ABSENT: distended, gua rding, rebound, tenderness Extremities exam: PRESENT: pedal edema, +1 edema. ABSENT: clubbing Musculoskeletal exam: PRESENT: normal inspection. ABSENT: deformity Neurological exam: PRESENT: alert, awake, oriented to person, oriented to place, oriented to time, oriented to situation Psychiatric exam: PRESENT: appropriate affect, normal mood Skin exam: PRESENT: dry, warm Results Laboratory Results: 01/11/19 21:35 01/11/19 04:00 01/10/19 01/10/19 01/10/19 07:48 07:48 12:28 Creatine Kinase 55 CK-MB (CK-2) 0.77 Troponin I 0.019 0.113 NT-Pro-B Natriuret Pep 5010 H 01/10/19 01/10/19 01/10/19 19:45 22:05 22:05 Creatine Kinase 90 CK-MB (CK-2) 2.28 Troponin I 0.194 0.147 NT-Pro-B Natriuret Pep 01/11/19 01/11/19 04:00 10:06 Creatine Kinase CK-MB (CK-2) Troponin I 0.179 0.160 NT-Pro-B Natriuret Pep Impressions: Chest X-Ray 01/10/19 08:07 IMPRESSION: Mild, diffuse bilateral interstitial pulmonary opacity, likely edema in the setting of cardiomegaly. No focal airspace opacity. Qualifiers - * PATIENT BEING DISCHARGED WITH ANY OF THE FOLLOWING DIAGNOSIS: No Acute Heart Failure Is this a Heart Failure Patient?: Yes Documentation of LVEF assessment?: Planned for after discharge a) Discharged on ACEI?: N/A Discharged on ARB b) Discharges on ARB?: Yes c) Discharged on ARNI?: No-Document Contraindications Reason(s) not discharged on ARNI: NYHA Class I or IV d) Discharged on evidence-based Beta kj(carvedilol, sustained release metoprolol succinate, or bisoprolol)?: Yes e) For LVEF <35%, discharged on Aldosterone antagonist?: N/A (LVEF > or = 35%) 3. Anticoagulant therapy for permanect/persistent/paraoxysmal Afib or Aflutter: N/A Follow-up Appointment scheduled within 7 days?: Yes Plan Time Spent: Greater than 30 Minutes
--- NOTE | 2019-02-01 17:23 | Physician Advisory Note ---
Physician Advisor ProgressNote .: [facility] for this patient. Physician Advisor Statement: Pt documented to have acute CHF. Attg needs to do quick DCSummary addendum to clarify whether CHF was most likely systolic or diastolic type. Findings in this case: (+) HTN, morbid obesity, CAD. On atenolol, prinivil, Crestor, Lasix, PRN NTG. Had rales, edema, no JVD. BPs this adm mostly 10 0s-140s/50s-80s. CXR=cardiomegaly, opacities consistent w/pulm edema. When no ECHO result is available, type CHF can be suspected based on clinical picture, including: - Systolic CHF is more likely if there is cardiomegaly, CAD, nl BPs, pt on beta kj/ACEI/diuretic, possibly dig/hydralazine/nitrate. - Diastolic CHF is more likely if there is nl heart size, HTN, pt on smineralocorticoid-receptor antagonist/diuretic but avoiding organic nitrates or PDE-5Is, or dig. Thanks, CK
== END 2019-01-13 12:06 | disposition home or self-care (01) | DRG 190 ==
LOC: ER 07:38 → EH 15:33 → 3W 17:45
PROVIDERS: ADMIT Hospitalist; ATTEND Hospitalist
PROC: 3E0F73Z Introduction of Anti-inflammatory into Respiratory Tract, Via Natural or Artificial Opening (ICD-10-PCS; principal; 2019-01-10)
PROC: 5A09457 Assistance with Respiratory Ventilation, 24-96 Consecutive Hours, Continuous Positive Airway Pressure (ICD-10-PCS; 2019-01-10)
PROC: 30233N1 Transfusion of Nonautologous Red Blood Cells into Peripheral Vein, Percutaneous Approach (ICD-10-PCS; 2019-01-11)
DX: J44.1 Chronic obstructive pulmonary disease with (acute) exacerbation (principal); J96.21 Acute and chronic respiratory failure with hypoxia; E11.9 Type 2 diabetes mellitus without complications; E66.9 Obesity, unspecified; Z68.30 Body mass index [BMI] 30.0-30.9, adult; Z66 Do not resuscitate; I25.2 Old myocardial infarction; E78.5 Hyperlipidemia, unspecified; I11.0 Hypertensive heart disease with heart failure; I50.9 Heart failure, unspecified; K21.9 Gastro-esophageal reflux disease without esophagitis; D64.9 Anemia, unspecified; Z79.899 Other long term (current) drug therapy; Z95.5 Presence of coronary angioplasty implant and graft; Z90.49 Acquired absence of other specified parts of digestive tract; Z87.891 Personal history of nicotine dependence; Z83.3 Family history of diabetes mellitus; Z80.9 Family history of malignant neoplasm, unspecified; Z79.82 Long term (current) use of aspirin; Z79.02 Long term (current) use of antithrombotics/antiplatelets; Z79.84 Long term (current) use of oral hypoglycemic drugs
CPT/HCPCS: 36415; 36430; 36600; 71045; 80048; 80053; 82550; 82553; 82803; 82962; 83036; 83735; 83880; 84484; 85025; 85027; 86850; 86900; 86901; 86920; 87040; 93005; 93010; 94640; 94660; 96374; 99291; J1650; J1815; J1940; J3490; J7620; P9016